=== PATIENT | male | born 1955 | race Caucasian/White ===

== ENCOUNTER 2017-07-31 13:38 | Emergency (ER) | payer OTHER ==
[~2017-07-31] VITALS: Ht 185.4 cm; Wt 87.0 kg
[2017-07-31] MEDS ORDERED: SODIUM CHLORIDE FLUSH 10ML SYR IVF ONE (15:00)
[2017-07-31] MEDS ORDERED: SODIUM CHLORIDE 0.9% 1,000ML IVBOLUS ONE (15:00)
[2017-07-31] MEDS ORDERED: LIDOCAINE-MPF 1%, 5ML ONE (15:10)
[2017-07-31 15:37] LABS: MEAN CORPUSCULAR HEMOGLOBIN 37.5 pg (27.5-34.5); MEAN CORPUSCULAR HGB CONC 33.4 g/dL (33.2-36.2); MEAN CORPUSCULAR VOLUME 112.1 fL (81-97); MEAN PLATELET VOLUME 11.1 fL (7.4-10.4); PLATELET COUNT 174 x10^3/uL (130-400); RED BLOOD COUNT 3.38 x10^6/uL (4.38-5.82); RED CELL DISTRIBUTION WIDTH 15.2 % (9.4-14.8)
[2017-07-31 15:41] LABS: ALANINE AMINOTRANSFERASE 44 U/L (12-78); ALBUMIN 2.4 g/dL (3.4-5.0); ANION GAP 10 mmol/L (5-15); CALCIUM 8.6 mg/dL (8.5-10.1); CHLORIDE 112 mmol/L (98-107)
[2017-07-31 15:46] LABS: ALKALINE PHOSPHATASE 149 U/L (45-117); CREATININE 1.33 mg/dL (0.7-1.3); TOTAL PROTEIN 6.5 g/dL (6.4-8.2)
[2017-07-31 15:47] LABS: INTERNATIONAL NORMALIZED RATIO 1.17 (0.93-1.1)
[2017-07-31 15:56] LABS: BASOPHILS # (AUTO) 0.04 x10^3/uL (0-0.1); BASOPHILS % (AUTO) 0 % (0-1); EOSINOPHILS # (AUTO) 0.07 x10^3/uL (0-0.4); EOSINOPHILS % (AUTO) 1 % (1-7); LYMPHOCYTES # (AUTO) 1.03 x10^3/uL (1-3.4); LYMPHOCYTES % (AUTO) 10 % (22-44); MD MORPH REVIEW ONLY; MONOCYTES # (AUTO) 0.84 x10^3/uL (0.2-0.8); MONOCYTES % (AUTO) 8 % (2-9); NEUTROPHILS # (AUTO) 8.08 x10^3/uL (1.8-6.8); NEUTROPHILS % (AUTO) 80 % (42-75)
[2017-07-31 16:04] LABS: POLYCHROMASIA 1+; TARGET CELLS 1+
[2017-07-31 16:06] LABS: <PLATELET ESTIMATE> ADEQUATE; LARGE PLATELETS 1+
[2017-07-31] MEDS ORDERED: ALBUMIN HUMAN 25% 200 ML IV ONE (17:30)
[2017-07-31 17:39] LABS: CELLS COUNTED 30
[2017-07-31 19:54] VITALS: BP 95/70
== END 2017-07-31 19:55 | disposition home or self-care (01) ==
LOC: ED 19:11
DX: K70.31 Alcoholic cirrhosis of liver with ascites (principal); N28.9 Disorder of kidney and ureter, unspecified; F10.20 Alcohol dependence, uncomplicated; I10 Essential (primary) hypertension; F17.200 Nicotine dependence, unspecified, uncomplicated; Z85.47 Personal history of malignant neoplasm of testis
CPT/HCPCS: 36415; 49083; 71045; 80053; 82042; 83615; 83690; 83880; 85025; 85610; 85730; 87070; 87205; 89051; 93005; 96361; 96365; 96366; 99285; J7030; P9047; 88112; 88305

== ENCOUNTER → 2017-10-21 | Outpatient (CLI) | payer OTHER ==
[~2017-10-21] MED LIST: ALBUMIN HUMAN 25%, 25GM/100ML ONE; LIDOCAINE-MPF 2% ,5ML ONE
== END | disposition home or self-care (01) ==
LOC: RAD 10:14
DX: K70.11 Alcoholic hepatitis with ascites (principal); K70.9 Alcoholic liver disease, unspecified
CPT/HCPCS: 49083; J3490; P9047

== ENCOUNTER 2018-08-16 20:06 | Emergency (ER) | payer SELFPAY ==
[~2018-08-16] VITALS: Ht 185.4 cm; Wt 88.8 kg
--- NOTE | 2018-08-16 20:48 | NUR ---
pt to ed for abd swelling x1 month. pt has hx of liver failure. pt has had paracentesis 2 previous time. connected to monitors. ra o2 sat 87%. 3l nc placed and recovered to 95%. all other vss. orders received. awaiting paracentesis.
[2018-08-16 21:16] LABS: INTERNATIONAL NORMALIZED RATIO 1.23 (0.93-1.1); PROTHROMBIN TIME 12.8 Seconds (9.6-11.5)
[2018-08-16 21:17] LABS: ALANINE AMINOTRANSFERASE 56 U/L (12-78); ALBUMIN 3.1 g/dL (3.4-5.0); ANION GAP 13 mmol/L (5-15); CALCIUM 8.2 mg/dL (8.5-10.1); CHLORIDE 110 mmol/L (98-107); CREATININE 1.08 mg/dL (0.7-1.3)
[2018-08-16 21:20] LABS: ALKALINE PHOSPHATASE 153 U/L (45-117); BILIRUBIN,TOTAL 3.5 mg/dL (0.2-1.0)
--- NOTE | 2018-08-16 21:20 | NUR ---
PT TO US.
[2018-08-16] MEDS ORDERED: LIDOCAINE-MPF 1%, 5ML ONE ×2 (21:32)
--- NOTE | 2018-08-16 21:52 | NUR ---
BS REPORT TO QUITA MURRAY. PT REMAINS UNABLE TO URINATE. PT CURRENTLY IN US.
[2018-08-16 22:03] LABS: MD YES; MEAN CORPUSCULAR HEMOGLOBIN 36.3 pg (27.5-34.5); MEAN CORPUSCULAR HGB CONC 34.5 g/dL (33.2-36.2); MEAN CORPUSCULAR VOLUME 105.3 fL (81-97); MEAN PLATELET VOLUME 10.4 fL (7.4-10.4); PLATELET COUNT 86 x10^3/uL (130-400); RED BLOOD COUNT 3.89 x10^6/uL (4.38-5.82); RED CELL DISTRIBUTION WIDTH 15.2 % (9.4-14.8)
[2018-08-16 22:06] LABS: BAND#(MANUAL) 0.06 x10^3/uL; BANDS%(MANUAL) 1 % (0-7); LYMPH#(MANUAL) 0.98 x10^3/uL (1-3.4); LYMPHS% (MANUAL) 16 % (22-44); MONOS#(MANUAL) 0.43 x10^3/uL (0.3-2.7); MONOS% (MANUAL) 7 % (2-9); SEG#(MANUAL) 4.64 x10^3/uL (1.8-6.8); SEGS% (MANUAL) 76 % (42-75)
[2018-08-16 22:13] LABS: <PLATELET ESTIMATE> DECREASED; TARGET CELLS 1+
[2018-08-16 22:14] LABS: <PLT MORPHOLOGY> NORMAL PLT MORPH
[2018-08-16 23:00] VITALS: BP 119/78
== END 2018-08-16 23:33 | disposition home or self-care (01) ==
LOC: ED 23:07
DX: K29.00 Acute gastritis without bleeding (principal); F10.20 Alcohol dependence, uncomplicated; I10 Essential (primary) hypertension
CPT/HCPCS: 36415; 49083; 80053; 83690; 85025; 85610; 85730; 99285

== ENCOUNTER 2018-09-08 10:00 | Emergency (ER) | payer SELFPAY ==
[~2018-09-08] VITALS: Ht 177.8 cm; Wt 86.5 kg
--- NOTE | 2018-09-08 10:41 | NUR ---
STRAWHAT SIZER: PT TO IR FOR PARACENTESIS
[2018-09-08] MEDS ORDERED: LIDOCAINE-MPF 1%, 5ML ONE ×2 (10:49)
--- NOTE | 2018-09-08 11:35 | NUR ---
FRUIT CANNER: PT RETURN FROM IR, PT TO ROOM VIA W/C
--- NOTE | 2018-09-08 11:35 | NUR ---
PT TO ED ROOM 19 FROM IR IN NAD
--- NOTE | 2018-09-08 12:12 | NUR ---
PT RESTING ON GURNEY. REPORTS HE FEELS RELIEF SINCE FLUID WAS DRAINED FROM HIS ABDOMEN. NO ACUTE DISTRES NOTED AND BLANKET PROVIDED.
[2018-09-08 12:18] LABS: ALANINE AMINOTRANSFERASE 53 U/L (12-78); ALBUMIN 3.1 g/dL (3.4-5.0); ALKALINE PHOSPHATASE 154 U/L (45-117); ANION GAP 13 mmol/L (5-15); BILIRUBIN,TOTAL 6.1 mg/dL (0.2-1.0); CALCIUM 8.3 mg/dL (8.5-10.1); CHLORIDE 104 mmol/L (98-107); CREATININE 1.95 mg/dL (0.7-1.3); TOTAL PROTEIN 7.3 g/dL (6.4-8.2)
[2018-09-08 12:25] LABS: BASOPHILS # (AUTO) 0.01 x10^3/uL (0-0.1); BASOPHILS % (AUTO) 0 % (0-1); EOSINOPHILS # (AUTO) 0.02 x10^3/uL (0-0.4); EOSINOPHILS % (AUTO) 0 % (1-7); LYMPHOCYTES # (AUTO) 0.95 x10^3/uL (1-3.4); LYMPHOCYTES % (AUTO) 12 % (22-44); MD MORPH REVIEW ONLY; MEAN CORPUSCULAR HEMOGLOBIN 36.7 pg (27.5-34.5); MEAN CORPUSCULAR HGB CONC 34.9 g/dL (33.2-36.2); MEAN CORPUSCULAR VOLUME 105.4 fL (81-97); MEAN PLATELET VOLUME 9.5 fL (7.4-10.4); MONOCYTES # (AUTO) 1.03 x10^3/uL (0.2-0.8); MONOCYTES % (AUTO) 13 % (2-9); NEUTROPHILS # (AUTO) 5.75 x10^3/uL (1.8-6.8); NEUTROPHILS % (AUTO) 74 % (42-75); PLATELET COUNT 84 x10^3/uL (130-400); RED BLOOD COUNT 3.54 x10^6/uL (4.38-5.82)
[2018-09-08 12:26] LABS: <PLATELET ESTIMATE> DECREASED; <PLT MORPHOLOGY> NORMAL PLT MORPH; ANISOCYTOSIS 1+; POLYCHROMASIA 1+; TARGET CELLS 1+
[2018-09-08 13:23] VITALS: BP 132/89
== END 2018-09-08 13:25 | disposition home or self-care (01) ==
LOC: ED 12:38
DX: K86.0 Alcohol-induced chronic pancreatitis (principal); I12.9 Hypertensive chronic kidney disease with stage 1 through stage 4 chronic kidney disease, or unspecified chronic kidney disease; N18.3 Chronic kidney disease, stage 3 (moderate)
CPT/HCPCS: 36415; 49083; 80053; 83690; 85025; 99285

== ENCOUNTER 2018-09-29 08:46 | Inpatient (IN) | payer OTHER ==
[~2018-09-29] VITALS: Ht 185.4 cm; Wt 92.4 kg
--- NOTE | 2018-09-29 09:00 | NUR ---
PATIENT PRESENTS TO ED TODAY FOR "KIDNEY FAILURE", CP, ABDOMINAL DISTENTION, AND N/V. PATIENT REPORTS CONSTIPATION, LAST BM 3 DAYS AGO. AUTHOR'S AGENT ON PATIENT, SKIN WARM, DRY, JAUNDICE. SISTER AT BEDSIDE, AWAITING MD ORDERS AT THIS TIME, CALL LIGHT WITHIN REACH.
[2018-09-29] MEDS ORDERED: LIDOCAINE-MPF 1%, 5ML ONE (09:11)
--- NOTE | 2018-09-29 09:13 | NUR ---
PATIENT NPO, LAST DRINK/FOOD INTAKE LAST NIGHT. LAB AT BEDSIDE, EMT AT BEDSIDE FOR EKG.
--- NOTE | 2018-09-29 09:24 | NUR ---
IV STARTED, IR TO TAKE PATIENT TO RADIOLOGY FOR PARACENTESIS. Matilde BROWNING+[id number].
[2018-09-29] MEDS ORDERED: SODIUM CHLORIDE FLUSH 10ML SYR IVF ONE (09:30)
[2018-09-29] MEDS ORDERED: SODIUM CHLORIDE 0.9% 1,000ML IVBOLUS ONE (09:30)
[2018-09-29 09:48] LABS: INTERNATIONAL NORMALIZED RATIO 1.24 (0.93-1.1); PROTHROMBIN TIME 12.9 Seconds (9.6-11.5)
[2018-09-29 09:53] LABS: ALANINE AMINOTRANSFERASE 75 U/L (12-78); ALBUMIN 3.1 g/dL (3.4-5.0); ANION GAP 15 mmol/L (5-15); CALCIUM 8.8 mg/dL (8.5-10.1); CHLORIDE 98 mmol/L (98-107); CREATININE 3.02 mg/dL (0.7-1.3); MEAN CORPUSCULAR HEMOGLOBIN 37.3 pg (27.5-34.5); MEAN CORPUSCULAR VOLUME 113.1 fL (81-97); MEAN PLATELET VOLUME 10.7 fL (7.4-10.4); PLATELET COUNT 101 x10^3/uL (130-400); RED CELL DISTRIBUTION WIDTH 19.9 % (9.4-14.8)
[2018-09-29 09:55] LABS: ANISOCYTOSIS 1+; BASOPHILS # (AUTO) 0.05 x10^3/uL (0-0.1); BASOPHILS % (AUTO) 1 % (0-1); EOSINOPHILS # (AUTO) 0.03 x10^3/uL (0-0.4); EOSINOPHILS % (AUTO) 0 % (1-7); LYMPHOCYTES # (AUTO) 1.37 x10^3/uL (1-3.4); LYMPHOCYTES % (AUTO) 16 % (22-44); MD MORPH REVIEW ONLY; MONOCYTES # (AUTO) 0.69 x10^3/uL (0.2-0.8); MONOCYTES % (AUTO) 8 % (2-9); NEUTROPHILS # (AUTO) 6.57 x10^3/uL (1.8-6.8); NEUTROPHILS % (AUTO) 76 % (42-75); POLYCHROMASIA 1+; TARGET CELLS 1+
[2018-09-29 09:56] LABS: <PLATELET ESTIMATE> DECREASED; LARGE PLATELETS 1+
[2018-09-29 09:57] LABS: ALKALINE PHOSPHATASE 167 U/L (45-117); BILIRUBIN,TOTAL 7.5 mg/dL (0.2-1.0); TOTAL PROTEIN 8.4 g/dL (6.4-8.2); TROPONIN I < 0.015 ng/mL (0.000-0.045)
[2018-09-29] MEDS ORDERED: SODIUM CHLORIDE 0.9% 1,000 ML IV ONE (10:00)
[2018-09-29] MEDS ORDERED: SODIUM CHLORIDE 0.9%, 500ML IVBOLUS ONE (10:00)
--- NOTE | 2018-09-29 10:20 | NUR ---
PATIENT BACK FROM IR, VSS AND UPDATED IN CHART. URINAL PROVIDED, UNABLE TO URINATE FOR UA AT THIS TIME, RARELY URINATES PER PATIENT. PATIENT SITTING IN GURNEY, ICE CHIPS OKAY'D BY ERP AND GIVEN TO PATIENT PER REQUEST, NO ADDITIONAL NEEDS AT THIS TIME.
[2018-09-29] MEDS ORDERED: ALBUMIN HUMAN 25% 200 ML IV ONE (10:30)
--- NOTE | 2018-09-29 10:32 | NUR ---
MEDICATION REQUEST SENT TO PHARMACY.
[2018-09-29 11:00] LABS: CELLS COUNTED 31
--- NOTE | 2018-09-29 11:01 | NUR ---
PATIENT BACK FROM XRAY, GI AT BEDSIDE.
[2018-09-29] MEDS ORDERED: POLYETHYLENE GLYCOL 17 GM PACKET PO PRN (11:30)
[2018-09-29] MEDS ORDERED: ONDANSETRON 2MG/ML, 2ML IVPush PRN (11:30)
[2018-09-29] MEDS ORDERED: ONDANSETRON ODT 4 MG PO PRN (11:30)
[2018-09-29] MEDS ORDERED: LABETALOL 5MG/ML, 20ML IVPush PRN (11:30)
--- NOTE | 2018-09-29 11:38 | NUR ---
LAB AT BEDSIDE FOR CULTURES.
[2018-09-29] MEDS: ALBUMIN HUMAN 25% 100 ML IV SCH ×3 (11:45→23:34)
[2018-09-29 12:00] LABS: FREE T4 (FREE THYROXINE) 1.57 ng/dL (0.76-1.46)
--- NOTE | 2018-09-29 12:04 | NUR ---
500ML IVF COMPLETED, ALBUMIN TO BE COMPLETED PRIOR TO SECOND 500ML IVF ADMINISTRATION PER ERP DR DOMINIQUE.
[2018-09-29] MEDS ORDERED: LORazepam 1MG TABLET ONE (12:30)
[2018-09-29] MEDS ORDERED: CHLORDIAZEPOXIDE 25 MG CAPSULE PO PRN (12:30)
[2018-09-29] MEDS ORDERED: LORazepam 2 MG/ML, 1ML IV PRN ×5 (12:30)
[2018-09-29] MEDS ORDERED: LORazepam 1MG TABLET PO PRN ×4 (12:30)
--- NOTE | 2018-09-29 12:33 | NUR ---
1mg PO ativan admin for detox symptoms. No other needs.
--- NOTE | 2018-09-29 13:16 | NUR ---
2ND IVF ADMINISTERED PER ORDER, MEDICATION REQUEST WALKED TO PHARMACY, TUBE STATION NOT WORKING, PATIENT PROVIDED WARM BLANKET, ED DIET TRAY ORDERS. PATIENT LAYING COMFORTABLY IN NAM FONTENOT.
--- NOTE | 2018-09-29 13:40 | NUR ---
PATIENT SITTING IN RWILLARDS SPEAKING TO GI AT BEDSIDE. NADN. PER GI, PATIENT TO BE CLEAR LIQUIDS WHEN GOING TO GIVE DIET TRAY. AWAITING DIET ORDER TO BE CHANGED TO CLEAR LIQUIDS.
[2018-09-29] MEDS: POTASSIUM CHLORIDE 20 MEQ, MAGNESIUM SULFATE 1 GM, THIAMINE 200 MG, FOLIC ACID 1 MG, MV... IV SCH (14:00)
[2018-09-29] MEDS: RIFAXIMIN 550 MG TABLET PO SCH ×2 (14:03→20:46)
[2018-09-29] MEDS: LACTULOSE 20 GM/30 ML UDC PO SCH ×3 (14:04→20:46)
--- NOTE | 2018-09-29 14:51 | NUR ---
VS UPDATED IN CHART, US AT BEDSIDE. NADN. AWAITING BED ASSIGNMENT, MED/TELE HOLD IN ED AT THIS TIME.
[2018-09-29] MEDS: SODIUM CHLORIDE 0.45% 1,000 ML IV SCH (15:00)
[2018-09-29] MEDS ORDERED: PANTOPRAZOLE 40 MG IV ONE (15:17)
[2018-09-29] MEDS: PANTOPRAZOLE 40 MG IV IVPush SCH (15:19)
--- NOTE | 2018-09-29 15:22 | NUR ---
GI AT BEDSIDE, VS UPDATED IN CHART. PATIENT SITTING IN NAM FONTENOT. AWAITING BED ASSIGNMENT. MED/TELE HOLD, NO ADDITIONAL NEEDS AT THIS TIME.
--- NOTE | 2018-09-29 16:04 | NUR ---
REPORT TO QUITA VELA. ROOM NOT CLEAN AT THIS TIME.
--- NOTE | 2018-09-29 16:05 | NUR ---
ROOM CLEAN, AWAITING TRANSPORT.
[2018-09-29] MEDS ORDERED: MAALOX/HYOSCYAMINE/LIDOCAINE 45 ML BTL PO ONE (16:30)
[2018-09-29 17:00] VITALS: BP 95/60
[2018-09-29] MEDS: SUCRALFATE 1 GM/10 ML UDC PO SCH ×2 (18:12→20:46)
[2018-09-29 20:18] VITALS: BP 108/64
[2018-09-29] MEDS: CHLORDIAZEPOXIDE 25 MG CAPSULE PO SCH (20:46)
[2018-09-30 00:43] VITALS: BP 115/67
[2018-09-30] MEDS: SODIUM CHLORIDE 0.45% 1,000 ML IV SCH ×3 (01:00→18:15)
[2018-09-30] MEDS: PANTOPRAZOLE 40 MG IV IVPush SCH ×2 (02:50→14:24)
[2018-09-30] MEDS: LORazepam 0.5MG TABLET PO PRN ×2 (02:50→10:41)
[2018-09-30] MEDS: ALBUMIN HUMAN 25% 100 ML IV SCH ×4 (05:42→23:30)
[2018-09-30 06:23] LABS: ALBUMIN 3.5 g/dL (3.4-5.0); ANION GAP 14 mmol/L (5-15); CALCIUM 8.2 mg/dL (8.5-10.1); CHLORIDE 104 mmol/L (98-107)
[2018-09-30 06:35] LABS: ALANINE AMINOTRANSFERASE 52 U/L (12-78); ALKALINE PHOSPHATASE 99 U/L (45-117); BILIRUBIN,TOTAL 6.2 mg/dL (0.2-1.0); CREATININE 2.45 mg/dL (0.7-1.3)
[2018-09-30 07:32] LABS: CULTURE INDICATED? YES; MICROSCOPIC INDICATED
[2018-09-30 07:38] VITALS: BP 120/68
[2018-09-30 08:05] LABS: BASOPHILS # (AUTO) 0.08 x10^3/uL (0-0.1); BASOPHILS % (AUTO) 1 % (0-1); EOSINOPHILS # (AUTO) 0.03 x10^3/uL (0-0.4); EOSINOPHILS % (AUTO) 0 % (1-7); LYMPHOCYTES # (AUTO) 0.62 x10^3/uL (1-3.4); LYMPHOCYTES % (AUTO) 9 % (22-44); MD SCAN; MEAN CORPUSCULAR HEMOGLOBIN 37.6 pg (27.5-34.5); MEAN CORPUSCULAR HGB CONC 33.5 g/dL (33.2-36.2); MEAN CORPUSCULAR VOLUME 112.1 fL (81-97); MEAN PLATELET VOLUME 10.3 fL (7.4-10.4); MONOCYTES # (AUTO) 0.72 x10^3/uL (0.2-0.8); MONOCYTES % (AUTO) 11 % (2-9); NEUTROPHILS # (AUTO) 5.23 x10^3/uL (1.8-6.8); NEUTROPHILS % (AUTO) 78 % (42-75); PLATELET COUNT 75 x10^3/uL (130-400); RED CELL DISTRIBUTION WIDTH 19.1 % (9.4-14.8)
[2018-09-30] MEDS: SENNA/DOCUSATE TABLET PO SCH (09:00)
[2018-09-30] MEDS: CHLORDIAZEPOXIDE 25 MG CAPSULE PO SCH ×3 (09:31→21:36)
[2018-09-30] MEDS: SUCRALFATE 1 GM/10 ML UDC PO SCH ×4 (09:31→21:36)
[2018-09-30] MEDS: RIFAXIMIN 550 MG TABLET PO SCH ×2 (09:31→21:36)
[2018-09-30] MEDS: LACTULOSE 20 GM/30 ML UDC PO SCH ×3 (09:31→21:36)
[2018-09-30 14:08] LABS: OCCULT BLOOD POSITIVE (NEGATIVE)
[2018-09-30 14:18] VITALS: BP 133/68
[2018-09-30] MEDS: POTASSIUM CHLORIDE 20 MEQ, MAGNESIUM SULFATE 1 GM, THIAMINE 200 MG, FOLIC ACID 1 MG, MV... IV SCH (14:22)
[2018-09-30 19:18] VITALS: BP 107/69
[2018-10-01] MEDS: ALBUMIN HUMAN 25% 100 ML IV SCH ×4 (00:15→17:26)
[2018-10-01 01:59] VITALS: BP 106/71
[2018-10-01] MEDS: PANTOPRAZOLE 40 MG IV IVPush SCH ×2 (03:25→15:40)
[2018-10-01 04:21] LABS: MEAN CORPUSCULAR HEMOGLOBIN 38.3 pg (27.5-34.5); MEAN CORPUSCULAR HGB CONC 33.7 g/dL (33.2-36.2); MEAN CORPUSCULAR VOLUME 113.6 fL (81-97); MEAN PLATELET VOLUME 10.6 fL (7.4-10.4); PLATELET COUNT 69 x10^3/uL (130-400); RED BLOOD COUNT 3.01 x10^6/uL (4.38-5.82); RED CELL DISTRIBUTION WIDTH 19.9 % (9.4-14.8)
[2018-10-01 04:32] LABS: CHLORIDE 106 mmol/L (98-107)
[2018-10-01 04:40] LABS: ALANINE AMINOTRANSFERASE 44 U/L (12-78); ALBUMIN 4.2 g/dL (3.4-5.0); ALKALINE PHOSPHATASE 84 U/L (45-117); ANION GAP 10 mmol/L (5-15); CALCIUM 8.7 mg/dL (8.5-10.1); CREATININE 2.38 mg/dL (0.7-1.3); TOTAL PROTEIN 7.2 g/dL (6.4-8.2)
[2018-10-01 05:51] LABS: BASOPHILS # (AUTO) 0.03 x10^3/uL (0-0.1); BASOPHILS % (AUTO) 0 % (0-1); EOSINOPHILS # (AUTO) 0.05 x10^3/uL (0-0.4); EOSINOPHILS % (AUTO) 1 % (1-7); LYMPHOCYTES # (AUTO) 0.88 x10^3/uL (1-3.4); LYMPHOCYTES % (AUTO) 12 % (22-44); MD MORPH REVIEW ONLY; MONOCYTES # (AUTO) 0.75 x10^3/uL (0.2-0.8); MONOCYTES % (AUTO) 11 % (2-9); NEUTROPHILS # (AUTO) 5.42 x10^3/uL (1.8-6.8); NEUTROPHILS % (AUTO) 76 % (42-75)
[2018-10-01 05:52] LABS: ANISOCYTOSIS 1+; POLYCHROMASIA 1+; TARGET CELLS 1+
[2018-10-01 05:53] LABS: <PLATELET ESTIMATE> DECREASED; LARGE PLATELETS 1+; OVALOCYTES 1+
[2018-10-01 07:50] VITALS: BP 113/67
[2018-10-01] MEDS: SENNA/DOCUSATE TABLET PO SCH (08:44)
[2018-10-01] MEDS: RIFAXIMIN 550 MG TABLET PO SCH ×2 (08:59→20:23)
[2018-10-01] MEDS: SUCRALFATE 1 GM/10 ML UDC PO SCH ×4 (08:59→20:23)
[2018-10-01] MEDS: CHLORDIAZEPOXIDE 25 MG CAPSULE PO SCH ×3 (08:59→20:23)
[2018-10-01] MEDS: LACTULOSE 20 GM/30 ML UDC PO SCH ×3 (09:00→20:23)
[2018-10-01 12:00] VITALS: BP 107/69
[2018-10-01 12:35] VITALS: BP 107/64
[2018-10-01] MEDS: POTASSIUM CHLORIDE 20 MEQ, MAGNESIUM SULFATE 1 GM, THIAMINE 200 MG, FOLIC ACID 1 MG, MV... IV SCH (15:08)
[2018-10-01 19:45] VITALS: BP 108/65
[2018-10-02] MEDS: ALBUMIN HUMAN 25% 100 ML IV SCH ×4 (00:01→17:41)
[2018-10-02 00:52] VITALS: BP 111/72
[2018-10-02] MEDS: PANTOPRAZOLE 40 MG IV IVPush SCH (03:55)
[2018-10-02 05:50] LABS: MEAN CORPUSCULAR HEMOGLOBIN 38.4 pg (27.5-34.5); MEAN CORPUSCULAR HGB CONC 33.9 g/dL (33.2-36.2); MEAN CORPUSCULAR VOLUME 113.3 fL (81-97); MEAN PLATELET VOLUME 10.7 fL (7.4-10.4); PLATELET COUNT 61 x10^3/uL (130-400); RED BLOOD COUNT 2.85 x10^6/uL (4.38-5.82); RED CELL DISTRIBUTION WIDTH 20.2 % (9.4-14.8)
[2018-10-02 06:12] LABS: CHLORIDE 110 mmol/L (98-107)
[2018-10-02 06:21] LABS: BASOPHILS # (AUTO) 0.04 x10^3/uL (0-0.1); BASOPHILS % (AUTO) 1 % (0-1); EOSINOPHILS # (AUTO) 0.15 x10^3/uL (0-0.4); EOSINOPHILS % (AUTO) 2 % (1-7); LYMPHOCYTES # (AUTO) 1.02 x10^3/uL (1-3.4); LYMPHOCYTES % (AUTO) 14 % (22-44); MD MORPH REVIEW ONLY; MONOCYTES % (AUTO) 10 % (2-9); NEUTROPHILS # (AUTO) 5.29 x10^3/uL (1.8-6.8); NEUTROPHILS % (AUTO) 73 % (42-75)
[2018-10-02 06:23] LABS: ANISOCYTOSIS 1+
[2018-10-02 06:24] LABS: <PLATELET ESTIMATE> DECREASED; POLYCHROMASIA 1+; TARGET CELLS 1+
[2018-10-02 06:25] LABS: <PLT MORPHOLOGY> NORMAL PLT MORPH
[2018-10-02 06:27] LABS: ALANINE AMINOTRANSFERASE 38 U/L (12-78); ALBUMIN 4.2 g/dL (3.4-5.0); ALKALINE PHOSPHATASE 84 U/L (45-117); ANION GAP 11 mmol/L (5-15); BILIRUBIN,TOTAL 6.6 mg/dL (0.2-1.0); CREATININE 2.18 mg/dL (0.7-1.3); TOTAL PROTEIN 6.7 g/dL (6.4-8.2)
[2018-10-02 07:54] VITALS: BP 116/71
[2018-10-02] MEDS ORDERED: SODIUM PHOSPHATE 40 MEQ in SODIUM CHLORIDE 0.9% 500 ML IV ONE (08:00)
[2018-10-02] MEDS ORDERED: SODIUM PHOSPHATE 4 MEQ/ML IV SCH (08:00)
[2018-10-02] MEDS: SUCRALFATE 1 GM/10 ML UDC PO SCH ×4 (08:58→22:17)
[2018-10-02] MEDS: RIFAXIMIN 550 MG TABLET PO SCH ×2 (08:59→22:16)
[2018-10-02] MEDS: LACTULOSE 20 GM/30 ML UDC PO SCH ×3 (08:59→21:00)
[2018-10-02] MEDS: CHLORDIAZEPOXIDE 25 MG CAPSULE PO SCH ×2 (08:59→22:16)
[2018-10-02] MEDS: SENNA/DOCUSATE TABLET PO SCH (08:59)
[2018-10-02 14:18] VITALS: BP 107/73
[2018-10-02] MEDS: PANTOPROZOLE 40MG TABLET PO SCH (16:39)
[2018-10-02] MEDS: NEUTRA PHOS K 250 MG TABLET PO SCH ×2 (16:39→22:16)
[2018-10-02 19:15] VITALS: BP 121/80
[2018-10-02] MEDS: SODIUM CHLORIDE 0.45% 1,000 ML IV SCH (21:00)
[2018-10-03] MEDS: ALBUMIN HUMAN 25% 100 ML IV SCH ×4 (00:37→18:30)
[2018-10-03 00:52] VITALS: BP 99/60
[2018-10-03] MEDS: POTASSIUM CHLORIDE 20 MEQ, MAGNESIUM SULFATE 1 GM, THIAMINE 200 MG, FOLIC ACID 1 MG, MV... IV SCH (03:30)
[2018-10-03] MEDS: PANTOPROZOLE 40MG TABLET PO SCH ×2 (05:49→16:33)
[2018-10-03 06:29] LABS: MEAN CORPUSCULAR HEMOGLOBIN 38.1 pg (27.5-34.5); MEAN CORPUSCULAR HGB CONC 33.4 g/dL (33.2-36.2); MEAN CORPUSCULAR VOLUME 114.1 fL (81-97); MEAN PLATELET VOLUME 10.8 fL (7.4-10.4); PLATELET COUNT 65 x10^3/uL (130-400); RED BLOOD COUNT 2.84 x10^6/uL (4.38-5.82); RED CELL DISTRIBUTION WIDTH 20.1 % (9.4-14.8)
[2018-10-03 06:41] LABS: BASOPHILS # (AUTO) 0.03 x10^3/uL (0-0.1); BASOPHILS % (AUTO) 0 % (0-1); EOSINOPHILS # (AUTO) 0.19 x10^3/uL (0-0.4); EOSINOPHILS % (AUTO) 3 % (1-7); LYMPHOCYTES # (AUTO) 0.94 x10^3/uL (1-3.4); LYMPHOCYTES % (AUTO) 13 % (22-44); MD SCAN; MONOCYTES # (AUTO) 0.69 x10^3/uL (0.2-0.8); MONOCYTES % (AUTO) 9 % (2-9); NEUTROPHILS # (AUTO) 5.53 x10^3/uL (1.8-6.8); NEUTROPHILS % (AUTO) 75 % (42-75)
[2018-10-03 06:42] LABS: ALANINE AMINOTRANSFERASE 32 U/L (12-78); ALBUMIN 4.5 g/dL (3.4-5.0); ANION GAP 9 mmol/L (5-15); CALCIUM 8.8 mg/dL (8.5-10.1); CHLORIDE 112 mmol/L (98-107); CREATININE 1.84 mg/dL (0.7-1.3)
[2018-10-03 06:44] LABS: ALKALINE PHOSPHATASE 69 U/L (45-117); BILIRUBIN,TOTAL 6.1 mg/dL (0.2-1.0); TOTAL PROTEIN 6.7 g/dL (6.4-8.2)
[2018-10-03] MEDS ORDERED: POTASSIUM CHLORIDE 20 MEQ TAB.ER.PRT PO ONE ×2 (07:30→11:30)
[2018-10-03 07:45] VITALS: BP 125/79
[2018-10-03] MEDS: SENNA/DOCUSATE TABLET PO SCH (09:00)
[2018-10-03] MEDS: LACTULOSE 20 GM/30 ML UDC PO SCH ×3 (09:00→21:00)
[2018-10-03] MEDS: SUCRALFATE 1 GM/10 ML UDC PO SCH ×4 (10:09→21:28)
[2018-10-03] MEDS: RIFAXIMIN 550 MG TABLET PO SCH ×2 (10:09→21:28)
[2018-10-03] MEDS: NEUTRA PHOS K 250 MG TABLET PO SCH (10:10)
[2018-10-03] MEDS: CHLORDIAZEPOXIDE 25 MG CAPSULE PO SCH ×2 (10:10→21:28)
[2018-10-03 13:30] VITALS: BP 104/64
[2018-10-03] MEDS: SODIUM CHLORIDE 0.45% 1,000 ML IV SCH (16:59)
[2018-10-03 19:12] VITALS: BP 111/72
[2018-10-04 00:25] VITALS: BP 126/79
[2018-10-04] MEDS: SODIUM CHLORIDE 0.45% 1,000 ML IV SCH ×3 (02:59→23:32)
[2018-10-04] MEDS: POTASSIUM CHLORIDE 20 MEQ, MAGNESIUM SULFATE 1 GM, THIAMINE 200 MG, FOLIC ACID 1 MG, MV... IV SCH (04:05)
[2018-10-04] MEDS: ALBUMIN HUMAN 25% 100 ML IV SCH ×2 (06:05)
[2018-10-04] MEDS: PANTOPROZOLE 40MG TABLET PO SCH ×2 (06:05→16:40)
[2018-10-04 06:31] LABS: MEAN CORPUSCULAR HEMOGLOBIN 38.7 pg (27.5-34.5); MEAN CORPUSCULAR HGB CONC 33.7 g/dL (33.2-36.2); MEAN CORPUSCULAR VOLUME 114.6 fL (81-97); RED BLOOD COUNT 2.66 x10^6/uL (4.38-5.82); RED CELL DISTRIBUTION WIDTH 20.6 % (9.4-14.8)
[2018-10-04 06:32] LABS: ALANINE AMINOTRANSFERASE 26 U/L (12-78); ALBUMIN 4.6 g/dL (3.4-5.0); ANION GAP 11 mmol/L (5-15); CALCIUM 9.1 mg/dL (8.5-10.1); CHLORIDE 117 mmol/L (98-107); CREATININE 1.65 mg/dL (0.7-1.3)
[2018-10-04 06:34] LABS: ALKALINE PHOSPHATASE 64 U/L (45-117); BILIRUBIN,TOTAL 6.5 mg/dL (0.2-1.0); TOTAL PROTEIN 6.8 g/dL (6.4-8.2)
[2018-10-04 07:25] LABS: MEAN PLATELET VOLUME 9.1 fL (7.4-10.4); PLATELET COUNT 57 x10^3/uL (130-400)
[2018-10-04 07:26] LABS: BASOPHILS # (AUTO) 0.13 x10^3/uL (0-0.1); BASOPHILS % (AUTO) 2 % (0-1); EOSINOPHILS % (AUTO) 2 % (1-7); LYMPHOCYTES # (AUTO) 0.97 x10^3/uL (1-3.4); LYMPHOCYTES % (AUTO) 12 % (22-44); MD SCAN; MONOCYTES # (AUTO) 0.87 x10^3/uL (0.2-0.8); MONOCYTES % (AUTO) 10 % (2-9); NEUTROPHILS # (AUTO) 6.16 x10^3/uL (1.8-6.8); NEUTROPHILS % (AUTO) 74 % (42-75)
[2018-10-04 08:30] VITALS: BP 127/81
[2018-10-04] MEDS ORDERED: SODIUM PHOSPHATE 30 MMOL in SODIUM CHLORIDE 0.9% 500 ML IV ONE (08:30)
[2018-10-04] MEDS ORDERED: SODIUM PHOSPHATE 4 MEQ/ML IV SCH (08:30)
[2018-10-04] MEDS: SENNA/DOCUSATE TABLET PO SCH (08:41)
[2018-10-04] MEDS: LACTULOSE 20 GM/30 ML UDC PO SCH ×3 (08:41→21:00)
[2018-10-04] MEDS: RIFAXIMIN 550 MG TABLET PO SCH ×2 (09:52→21:00)
[2018-10-04] MEDS: SUCRALFATE 1 GM/10 ML UDC PO SCH ×4 (09:53→21:00)
[2018-10-04] MEDS: SPIRONOLACTONE 50 MG TABLET PO SCH (12:23)
[2018-10-04] MEDS: FUROSEMIDE 20 MG TABLET PO SCH (12:24)
[2018-10-04 13:24] VITALS: BP 132/83
[2018-10-04 21:11] VITALS: BP 118/74
[2018-10-04] MEDS: LORazepam 0.5MG TABLET PO PRN (21:14)
[2018-10-05 00:24] VITALS: BP 116/75
[2018-10-05] MEDS: POTASSIUM CHLORIDE 20 MEQ, MAGNESIUM SULFATE 1 GM, THIAMINE 200 MG, FOLIC ACID 1 MG, MV... IV SCH (03:57)
[2018-10-05] MEDS: SUCRALFATE 1 GM/10 ML UDC PO SCH ×4 (05:51→21:42)
[2018-10-05] MEDS: PANTOPROZOLE 40MG TABLET PO SCH ×2 (05:51→16:39)
[2018-10-05 07:34] VITALS: BP 90/54
[2018-10-05 08:32] LABS: ALBUMIN 4.2 g/dL (3.4-5.0); ANION GAP 12 mmol/L (5-15); CALCIUM 8.8 mg/dL (8.5-10.1); CHLORIDE 117 mmol/L (98-107)
[2018-10-05 08:36] LABS: ALANINE AMINOTRANSFERASE 26 U/L (12-78); ALKALINE PHOSPHATASE 57 U/L (45-117); CREATININE 1.54 mg/dL (0.7-1.3); TOTAL PROTEIN 6.3 g/dL (6.4-8.2)
[2018-10-05 08:49] VITALS: BP 107/69
[2018-10-05] MEDS: SENNA/DOCUSATE TABLET PO SCH (09:00)
[2018-10-05] MEDS: LACTULOSE 20 GM/30 ML UDC PO SCH ×3 (09:22→21:42)
[2018-10-05] MEDS: RIFAXIMIN 550 MG TABLET PO SCH ×2 (09:22→21:42)
[2018-10-05] MEDS: SPIRONOLACTONE 50 MG TABLET PO SCH (09:23)
[2018-10-05] MEDS: FUROSEMIDE 20 MG TABLET PO SCH (09:23)
[2018-10-05 15:08] VITALS: BP 113/72
[2018-10-05 20:00] VITALS: BP 101/66
[2018-10-05] MEDS: SODIUM CHLORIDE 0.45% 1,000 ML IV SCH (21:46)
[2018-10-06 01:00] VITALS: BP 93/49
[2018-10-06] MEDS: POTASSIUM CHLORIDE 20 MEQ, MAGNESIUM SULFATE 1 GM, THIAMINE 200 MG, FOLIC ACID 1 MG, MV... IV SCH (03:48)
[2018-10-06] MEDS: PANTOPROZOLE 40MG TABLET PO SCH ×2 (05:44→16:35)
[2018-10-06 06:20] LABS: CHLORIDE 118 mmol/L (98-107)
[2018-10-06 06:29] LABS: ALANINE AMINOTRANSFERASE 22 U/L (12-78); ALBUMIN 3.9 g/dL (3.4-5.0); ALKALINE PHOSPHATASE 58 U/L (45-117); ANION GAP 10 mmol/L (5-15); BILIRUBIN,TOTAL 7.2 mg/dL (0.2-1.0); CALCIUM 8.7 mg/dL (8.5-10.1); CREATININE 1.68 mg/dL (0.7-1.3); TOTAL PROTEIN 6.2 g/dL (6.4-8.2)
[2018-10-06] MEDS: SUCRALFATE 1 GM/10 ML UDC PO SCH ×3 (06:43→16:35)
[2018-10-06 08:00] VITALS: BP 97/58
[2018-10-06] MEDS: SENNA/DOCUSATE TABLET PO SCH (09:00)
[2018-10-06] MEDS: LACTULOSE 20 GM/30 ML UDC PO SCH ×2 (10:17→16:00)
[2018-10-06] MEDS: SPIRONOLACTONE 50 MG TABLET PO SCH (10:17)
[2018-10-06] MEDS: RIFAXIMIN 550 MG TABLET PO SCH (10:17)
[2018-10-06] MEDS: FUROSEMIDE 20 MG TABLET PO SCH (10:18)
[2018-10-06] MEDS: SODIUM CHLORIDE 0.45% 1,000 ML IV SCH (10:19)
[2018-10-06] MEDS ORDERED: MULTIVITAMIN 1 TABLET PO SCH (11:30)
[2018-10-06] MEDS ORDERED: PANT40TA5 PO (11:52)
[2018-10-06] MEDS ORDERED: SUCR1ORA5 PO (11:52)
[2018-10-06] MEDS ORDERED: LACT20SO13 PO (11:52)
[2018-10-06] MEDS ORDERED: RIFA550T4 PO (11:52)
[2018-10-06] MEDS ORDERED: FURO20TA3 PO (11:52)
[2018-10-06] MEDS ORDERED: SPIR50TA PO (11:52)
[2018-10-06] MEDS ORDERED: MULT1TAB60 PO (11:52)
[2018-10-06 13:27] VITALS: BP 119/77
== END 2018-10-06 18:27 | DRG 433 ==
LOC: ED 10:29 → EDIP 11:15 → 4WST 16:20
PROVIDERS: ADMIT Internal Medicine; ATTEND Internal Medicine
PROC: 0W9G3ZZ Drainage of Peritoneal Cavity, Percutaneous Approach (ICD-10-PCS; principal; 2018-09-29)
DX: K70.31 Alcoholic cirrhosis of liver with ascites (principal); E87.0 Hyperosmolality and hypernatremia; E87.1 Hypo-osmolality and hyponatremia; E87.2 Acidosis; F10.239 Alcohol dependence with withdrawal, unspecified; K76.6 Portal hypertension; N17.9 Acute kidney failure, unspecified; K92.0 Hematemesis; Z66 Do not resuscitate; N18.9 Chronic kidney disease, unspecified; I12.9 Hypertensive chronic kidney disease with stage 1 through stage 4 chronic kidney disease, or unspecified chronic kidney disease; D64.9 Anemia, unspecified; D69.59 Other secondary thrombocytopenia; D75.89 Other specified diseases of blood and blood-forming organs; E78.5 Hyperlipidemia, unspecified; E86.0 Dehydration; E86.1 Hypovolemia; F15.90 Other stimulant use, unspecified, uncomplicated; F17.210 Nicotine dependence, cigarettes, uncomplicated; F41.9 Anxiety disorder, unspecified; K59.00 Constipation, unspecified; K70.11 Alcoholic hepatitis with ascites; K70.40 Alcoholic hepatic failure without coma; K80.20 Calculus of gallbladder without cholecystitis without obstruction; R13.10 Dysphagia, unspecified; R73.03 Prediabetes; Z79.899 Other long term (current) drug therapy; Z80.6 Family history of leukemia; Z82.49 Family history of ischemic heart disease and other diseases of the circulatory system; Z85.47 Personal history of malignant neoplasm of testis; Z86.010 Personal history of colon polyps; Z86.73 Personal history of transient ischemic attack (TIA), and cerebral infarction without residual deficits; Z90.79 Acquired absence of other genital organ(s); Z91.19 Patient's noncompliance with other medical treatment and regimen; Z98.1 Arthrodesis status
CPT/HCPCS: 36415; 49083; 74022; 76700; 80053; 80307; 81001; 82140; 82272; 82570; 83605; 83690; 83735; 84100; 84145; 84156; 84300; 84439; 84443; 84484; 85014; 85018; 85025; 85610; 87040; 87086; 89051; 93005; 96360; 99291; G0378; J3411; J3475; J3480; P9047; C9113; J7030; J7040